=== PATIENT | female | born 1970 | race Caucasian/White ===

== ENCOUNTER → 2016-11-01 | Outpatient (CLI) | payer BC ==
[~2016-11-01] MED LIST: HCTZ12.5TAB; NORCO 325 MG-51 TAB PO
== END ==
LOC: COL.RAD 07:53
DX: E01.0 Iodine-deficiency related diffuse (endemic) goiter (principal); R79.89 Other specified abnormal findings of blood chemistry
CPT/HCPCS: A9516

== ENCOUNTER 2020-03-25 08:31 | Outpatient (RCR) | payer OTHER | END 2020-04-21 | disposition home or self-care (01) | LOC: WSOH | DX: S56.911D Strain of unspecified muscles, fascia and tendons at forearm level, right arm, subsequent encounter (principal); I10 Essential (primary) hypertension; Z90.89 Acquired absence of other organs; Z96.642 Presence of left artificial hip joint; Z98.890 Other specified postprocedural states; Y99.0 Civilian activity done for income or pay ==

== ENCOUNTER 2020-06-02 14:16 | Outpatient (RCR) | payer OTHER | END 2020-07-28 | disposition home or self-care (01) | LOC: WSOH | DX: M25.521 Pain in right elbow (principal); Y99.0 Civilian activity done for income or pay ==

== ENCOUNTER 2020-09-01 12:36 | Outpatient (RCR) | payer OTHER | END 2020-09-01 12:37 | LOC: WSOH 12:36 | DX: S56.911D Strain of unspecified muscles, fascia and tendons at forearm level, right arm, subsequent encounter (principal); I10 Essential (primary) hypertension; Z96.652 Presence of left artificial knee joint; Z90.89 Acquired absence of other organs; Y99.0 Civilian activity done for income or pay ==

== ENCOUNTER → 2023-12-08 | Outpatient (CLI) | payer BC | LOC: COL.RAD 09:40 | DX: M51.16 Intervertebral disc disorders with radiculopathy, lumbar region (principal); M47.26 Other spondylosis with radiculopathy, lumbar region; M47.27 Other spondylosis with radiculopathy, lumbosacral region; M41.86 Other forms of scoliosis, lumbar region; M48.061 Spinal stenosis, lumbar region without neurogenic claudication ==

== ENCOUNTER → 2023-12-27 | Outpatient (CLI) | payer BC | LOC: MC.RAD 12:57 | DX: Z12.31 Encounter for screening mammogram for malignant neoplasm of breast (principal) ==